=== PATIENT | female | born 1995 | race African-American/Black ===

== ENCOUNTER 2024-09-25 11:02 | Emergency (ER) | payer OTHER ==
[~2024-09-25] VITALS: Ht 167.6 cm; Wt 96.0 kg
[2024-09-25 11:08] VITALS: O2SAT 100
[2024-09-25 11:11] VITALS: BP 156/106; PULSE 89; RESP 16; TEMP 36.7; O2SAT 98
[2024-09-25] MEDS ORDERED: BENZ100C86 MT (12:51)
== END 2024-09-25 13:18 | disposition home or self-care (01) ==
LOC: ER 11:02
DX: B34.9 Viral infection, unspecified (principal); I10 Essential (primary) hypertension; F10.90 Alcohol use, unspecified, uncomplicated; Z90.89 Acquired absence of other organs; Y90.9 Presence of alcohol in blood, level not specified
CPT/HCPCS: 73110; 81025; 99283